=== PATIENT | male | born 1960 | race Caucasian/White ===

== ENCOUNTER 2021-07-05 11:09 | Inpatient (IN) ==
[2021-07-05] MEDS ORDERED: 0.9 % Sodium Chloride 1,000 ML IVC ONE (11:19)
[2021-07-05 11:48] LABS: Basophils % 0.3 %; Eosinophils # 0.5 K/mcL (0.0-0.6); Eosinophils % 3.9 %; Hematocrit 53.5 % (37.5-50.1); Hemoglobin 18.1 g/dL (12.9-16.9); Immature Granulocytes % 0.6 % (0-4); Lymphocytes # 1.2 K/mcL (0.6-4.6); Lymphocytes % 9.9 %; Mean Corpuscular HGB Conc 33.8 g/dL (31.6-35.5); Mean Corpuscular Hemoglobin 30.7 pg (28.0-33.3); Mean Corpuscular Volume 90.7 fL (83.0-100.0); Mean Platelet Volume 10.1 fL (9.4-12.4); Monocytes # 0.8 K/mcL (0.0-1.3); Monocytes % 6.2 %; Neutrophils # 9.9 K/mcL (1.6-8.9); Platelet Count 229 K/mcL (140-400); Red Cell Distribution Width 14.6 % (11.5-14.5); Segmented Neutrophils % 79.1 %; White Blood Count 12.4 K/mcL (4.3-11.1)
[2021-07-05 12:09] LABS: Alanine Aminotransferase 17 Units/L (7-52); Albumin/Globulin Ratio 1.7 (1.1-2.2); Alkaline Phosphatase 91 Units/L (34-104); Aspartate Amino Transferase 8 Units/L (13-39); BUN/Creatinine Ratio 18 (6-26); Bilirubin,Direct 0.2 mg/dL (0.0-0.2); Bilirubin,Indirect 0.8 mg/dL (0.0-1.0); Blood Urea Nitrogen 78 mg/dL (8-23); Calcium 9.8 mg/dL (8.6-10.3); Carbon Dioxide 15 mEq/L (23-29); Chloride 107 mEq/L (98-107); Globulin 2.9 g/dL (2.4-3.5); Glucose 171 mg/dL (70-105); Lipase 534 Units/L (11-82); Osmolality,Calculated 303 (280-300); Potassium 5.4 mEq/L (3.5-5.1); Sodium 133 mEq/L (136-145); Total Protein 7.9 g/dL (6.4-8.9); Troponin I < 0.03 ng/mL (< 0.04); eGFR For African Americans 17 (> 60); eGFR For Non-African Americans 14 (> 60)
[2021-07-05 12:17] LABS: Bacteria,Urine Few per hpf (None-Few); Bilirubin,Urine Negative (Negative); Blood,Urine Negative (Negative); Clarity,Urine Clear (Clear); Color,Urine Light-Yellow (Yellow); Glucose,Urine (UA) >=1000 mg/dL (Normal); Hyaline Casts,Urine Moderate per lpf (None Seen); Ketones,Urine Negative (Negative); Leukocyte Esterase,Urine Negative (Negative); Mucus,Urine Few per lpf (None-Few); Nitrite,Urine Negative (Negative); PH,Urine 5.5 pH Units (5.0-8.0); Protein,Urine 30 mg/dL (Neg-Trace); RBC,Urine 0-3 per hpf (0-3); Specific Gravity,Urine 1.017 (1.010-1.025); Urobilinogen,Urine Normal (Normal); WBC,Urine 0-3 per hpf (0-3)
[2021-07-05] MEDS ORDERED: Ondansetron ODT 4 MG TAB.RAPDIS SL PRN (13:41)
[2021-07-05] MEDS ORDERED: Melatonin 3 MG TABLET PO PRN (13:41)
[2021-07-05] MEDS ORDERED: Naloxone 0.4 MG/ML INJ IVP PRN (13:41)
[2021-07-05] MEDS ORDERED: 0.9 % Sodium Chloride 1,000 ML IVC SCH ×2 (13:45→14:26)
[2021-07-05 16:47] LABS: INR 4.5; Prothrombin Time 49.5 Seconds (9.4-12.1)
[2021-07-05] MEDS: Sodium Bicarbonate 150 MEQ in Water for inj. (sterile) 1,000 ML IVC SCH (17:47)
[2021-07-05] MEDS ORDERED: Warfarin perPT PO PRN (18:00)
[2021-07-05] MEDS: MYCOPHENOLATE 180 MG PO SCH (20:26)
[2021-07-06 01:51] LABS: Basophils % 0.4 %; Eosinophils # 0.6 K/mcL (0.0-0.6); Eosinophils % 6.9 %; Hematocrit 45.9 % (37.5-50.1); Immature Granulocytes % 0.5 % (0-4); Lymphocytes % 21.9 %; Mean Corpuscular HGB Conc 33.1 g/dL (31.6-35.5); Mean Corpuscular Volume 90.7 fL (83.0-100.0); Mean Platelet Volume 10.6 fL (9.4-12.4); Monocytes # 0.7 K/mcL (0.0-1.3); Monocytes % 7.4 %; Neutrophils # 5.8 K/mcL (1.6-8.9); Platelet Count 178 K/mcL (140-400); Red Blood Count 5.06 M/mcL (4.19-5.50); Red Cell Distribution Width 14.6 % (11.5-14.5); Segmented Neutrophils % 62.9 %; White Blood Count 9.2 K/mcL (4.3-11.1)
[2021-07-06 01:59] LABS: Hemoglobin 15.2 g/dL (12.9-16.9)
[2021-07-06 02:08] LABS: Calcium 8.7 mg/dL (8.6-10.3); Potassium 5.4 mEq/L (3.5-5.1)
[2021-07-06 02:15] LABS: INR 4.5; Prothrombin Time 49.8 Seconds (9.4-12.1)
[2021-07-06] MEDS: Sodium Bicarbonate 150 MEQ in Water for inj. (sterile) 1,000 ML IVC SCH (04:49)
[2021-07-06] MEDS: MYCOPHENOLATE 180 MG PO SCH ×2 (08:38→20:40)
[2021-07-06] MEDS: 0.9 % Sodium Chloride 1,000 ML IVC SCH ×2 (11:48→20:38)
[2021-07-07 06:58] LABS: INR 2.4; Prothrombin Time 26.4 Seconds (9.4-12.1)
[2021-07-07 07:14] LABS: Calcium 8.8 mg/dL (8.6-10.3); Potassium 5.5 mEq/L (3.5-5.1)
[2021-07-07] MEDS: MYCOPHENOLATE 180 MG PO SCH (09:36)
[2021-07-07 14:32] LABS: Potassium 5.1 mEq/L (3.5-5.1)
[2021-07-07 15:28] VITALS: BP 134/71; PULSE 75; TEMP 97.9; O2SAT 97
[2021-07-07] MEDS ORDERED: *HR* Warfarin 3 MG TABLET PO ONE (18:00)
== END 2021-07-07 16:50 | disposition home or self-care (01) | DRG 682 ==
LOC: EMEROOARM 11:09 → 2ANU 11:09 → SUATTDRO 14:16 → 2ANU 15:41 → SUATTDRO 07-06 10:23
PROVIDERS: ADMIT Pharmacist; ATTEND Student in an Organized Health Care Education/Training Program